=== PATIENT | female | born 1965 | race Caucasian/White ===

== ENCOUNTER 2023-06-29 01:40 | Emergency (ER) | payer OTHER, SELFPAY ==
[2023-06-29] MEDS ORDERED: Ondansetron ODT 4 MG TAB ONE (02:44)
[2023-06-29 03:04] LABS: #Neutrophils 8.4 thou/uL (1.40-6.50); %Basophils 0.1 % (0.0-1.0); %Lymphocytes 7.8 % (21.0-51.0); %Monocytes 9.9 % (0.0-10.0); %Neutrophils 81.9 % (42.0-75.0); Hematocrit 36.9 % (36.0-47.0); Hemoglobin 12.7 g/dL (12.0-16.0); Mean Corpuscular HGB CONC 34.4 g/dL (32.0-36.0); Mean Corpuscular Hemoglobin 28.5 pg (27.0-31.0); Mean Corpuscular Volume 82.7 fl (78.0-98.0); Mean Platelet Volume 10.1 fL (7.4-10.4); Platelet Count 237 10x3/uL (130-400); RBC Distribution Width 14.5 % (11.5-14.5); Red Blood Cell (RBC) Count 4.46 mill/uL (4.20-5.40); White Blood Cell (WBC) Count 10.2 10x3/uL (4.8-10.8)
[2023-06-29 03:30] LABS: ALT (SGPT) 14 U/L (8-55); AST (SGOT) 22 U/L (5-34); Albumin 4.4 g/dL (3.5-5.0); Alkaline Phosphatase 62 U/L (40-110); Anion Gap 17 mmol/L (10-20); BUN (Urea Nitrogen) 23 mg/dL (9.8-20.1); Bilirubin, Total 0.3 mg/dL (0.2-1.2); Calc. Creatinine Clearance 0 mL/min (70-130); Carbon Dioxide 20 mmol/L (22-29); Chloride 101 mmol/L (98-107); Estimated GFR 45; Globulin 2.6 g/dL (2.4-3.5); Glucose 89 mg/dL (70-105); Lipase 36 U/L (8-78); Potassium 3.4 mmol/L (3.5-5.1); Sodium 135 mmol/L (136-145)
[2023-06-29] MEDS ORDERED: Ondansetron PF 4 MG/2 ML Vial ONE (03:34)
[2023-06-29] MEDS ORDERED: Ketorolac Tromethamine 30 MG/ML VIAL ONE (03:34)
[2023-06-29 03:35] LABS: Troponin I Less than 0.010 ng/mL (< 0.028)
[2023-06-29] MEDS ORDERED: diphenhydrAMINE 50 MG/ML VIAL ONE (04:38)
[2023-06-29] MEDS ORDERED: Metoclopramide HCl 10 MG/2 ML VIAL ONE (04:39)
[2023-06-29 06:10] LABS: SARS-CoV-2 NAA Rapid Test Not Detected (NotDetected)
== END 2023-06-29 06:13 | disposition home or self-care (01) ==
LOC: ERS 01:40
DX: J11.1 Influenza due to unidentified influenza virus with other respiratory manifestations (principal); E86.0 Dehydration
CPT/HCPCS: 36415; 71045; 80053; 83690; 84484; 85025; 87081; 87430; 93005; 96361; 96365; 96375; J1200; J1885; J2405; J2765; Q0162